=== PATIENT | male | born 1965 | race Caucasian/White ===

== ENCOUNTER 2016-10-06 13:23 | Outpatient (CLI) | payer MEDICAID ==
[~2016-10-06] VITALS: Ht 175.3 cm; Wt 84.1 kg
[2016-10-06 14:09] LABS: BASOPHILS 0.2 % (0.0-2.0); EOSINOPHILS 0.4 % (0-7); HEMATOCRIT 47.5 % (42.0-54.0); HEMOGLOBIN 16.4 g/dL (13.5-17.5); IMMATURE GRANULOCYTES 0.4 % (0-5); LYMPHOCYTES 4.7 % (15-50); MCH 32.2 pg (26.0-34.0); MCHC 34.5 g/dL (31.0-37.0); MCV 93.3 fL (80.0-100.0); MEAN PLATELET VOLUME 9.5 fL (7.4-10.4); NEUTROPHILS 88.3 % (40-80); PLATELET COUNT 192 10x3/uL (130-400); RBC 5.09 10x6/uL (4.20-6.10); WBC 13.6 10x3/uL (4.8-10.8)
[2016-10-06 14:26] LABS: INR 1.69 (0.85-1.17); PROTIME 19.8 SECONDS (11.6-15.0)
[2016-10-06 14:27] LABS: APTT 36.4 SECONDS (22.8-39.4)
[2016-10-06 14:32] LABS: ALBUMIN 2.6 g/dL (3.4-5.0); ANION GAP 14.4 mmol/L (8-16); BILIRUBIN - TOTAL 3.5 mg/dL (0.2-1.3); CALCIUM 9.2 mg/dL (8.5-10.1); CARBON DIOXIDE 25.8 mmol/L (21.0-32.0); CREATININE - SERUM 1.4 mg/dL (0.6-1.3); POTASSIUM - SERUM 5.2 mmol/L (3.5-5.1); PROTEIN - SERUM 9.5 g/dL (6.4-8.2)
[2016-10-06] MEDS ORDERED: ALDACTONE25 MG PO (14:42)
[2016-10-06] MEDS ORDERED: FUROSEMIDE20 MG PO (14:42)
[2016-10-06] MEDS ORDERED: PHENERGAN25 M1 PO (14:43)
[2016-10-06] MEDS ORDERED: OXYCODONE HCL10 MG PO (14:44)
[2016-10-06 14:51] VITALS: BP 111/79; Ht 175.3 cm; Wt 84.1 kg
--- NOTE | 2016-10-06 18:02 | NUR ---
1715 IV DC WITH CATHER TIP INTACT, VS TAKEN AND PLACE ON POST OP SHEET
== END 2016-10-06 17:45 | disposition home or self-care (01) ==
LOC: D.OPS 13:23
PROVIDERS: General Practice
DX: C22.0 Liver cell carcinoma (principal); R18.0 Malignant ascites